=== PATIENT | female | born 2000 | race Caucasian/White ===

== ENCOUNTER 2018-08-19 10:22 | Emergency (ER) | payer OTHER ==
[2018-08-19 11:07] VITALS: BP 124/85; PULSE 70; TEMP 98.2; BMI 26.5
[2018-08-19] MEDS ORDERED: KETOROLAC TROMETHAMINE 30 MG/1 ML VIAL IM ONE (11:47)
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
[2018-08-19] MEDS ORDERED: KETOROLAC TROMETHAMINE 30 MG/1 ML VIAL ONE (11:51)
== END 2018-08-19 12:12 | disposition home or self-care (01) ==
LOC: JERFT 10:22
PROC: 3E0233Z Introduction of Anti-inflammatory into Muscle, Percutaneous Approach (ICD-10-PCS; principal; 2018-08-19)
DX: M79.18 Myalgia, other site (principal); M25.512 Pain in left shoulder; V43.52XA Car driver injured in collision with other type car in traffic accident, initial encounter; Y92.414 Local residential or business street as the place of occurrence of the external cause; Y93.89 Activity, other specified; Y99.8 Other external cause status
CPT/HCPCS: 99281-25